=== PATIENT | female | born 1995 | race Caucasian/White ===

== ENCOUNTER → 2023-09-13 | Outpatient (CLI) | payer OTHER | LOC: M RAD 12:08 | PROVIDERS: ATTEND Surgery | DX: I83.812 Varicose veins of left lower extremity with pain (principal) ==

== ENCOUNTER 2024-10-26 10:20 | Inpatient (IN) | payer OTHER ==
[~2024-10-26] VITALS: Ht 167.6 cm; Wt 80.8 kg
[2024-10-26 11:50] LABS: BASO # 0.0 10^3/uL (0.0-0.2); BASO % 0.2 % (0.0-1.0); EOS # 0.0 10^3/uL (0.0-0.5); EOS % 0.3 % (0.0-3.0); LYMPH # 1.0 10^3/uL (1.5-5.0); LYMPH % 7.3 % (24.0-44.0); MONO # 0.4 10^3/uL (0.0-0.8); MONO % 3.0 % (2.0-8.0); NEUTROPHILS # 11.6 10^3/uL (1.5-8.5); NEUTROPHILS % 88.8 % (36.0-66.0); PLATELET COUNT, AUTOMATED 283 10^3/uL (150-450)
[2024-10-26 12:18] LABS: ALT/SGPT 9 U/L (7.0-40); AST/SGOT 20 U/L (<34); CALCIUM LEVEL 9.6 MG/DL (8.5-10.1); CARBON DIOXIDE LEVEL 29 MMOL/L (20-31); CHLORIDE LEVEL 102 MMOL/L (98-107); CREATININE FOR GFR 0.87 MG/DL (0.55-1.30); GLOMERULAR FILTRATION RATE > 90.0 (>60); POTASSIUM SERUM 4.3 MMOL/L (3.5-5.1); SODIUM LEVEL 141 MMOL/L (136-145)
[2024-10-26 12:29] LABS: HCG, SERUM QUALITATIVE NEGATIVE (NEGATIVE)
[2024-10-26] MEDS: ONDANSETRON 4MG 2ML VIAL IV ONE (14:53)
[2024-10-26 15:10] LABS: C REACTIVE PROTEIN QUANTITATIV 0.56 MG/DL (<1.0)
[2024-10-26 15:24] LABS: ERYTHROCYTE SEDIMENTATION RATE 9 mm/hr (0-20)
[2024-10-26] MEDS ORDERED: HOME MED LIST COMPLETE! XX SCH (16:25)
[2024-10-26] MEDS: KETOROLAC 30 MG/ML 1 ML VIAL IV ONE (16:37)
[2024-10-26] MEDS ORDERED: MOM 30 ML SUSPENSION UDC PO PRN (18:00)
[2024-10-26] MEDS ORDERED: MAALOX 30 ML SUSP *UDC PO PRN (18:00)
[2024-10-26] MEDS: NS (Normal Saline) 0.9% 1,000 ML IV ONE (18:29)
[2024-10-26] MEDS: metroNIDAZOLE 500 MG in IV 1 EA IV ONE (18:29)
[2024-10-26] MEDS: ACETAMINOPHEN 325 MG TAB PO PRN (19:43)
[2024-10-26] MEDS: CIPROFLOXACIN 400 MG in IV 1 EA IV ONE (20:27)
[2024-10-26] MEDS: D5W/0.9% SODIUM CHLORIDE 1,000 ML IV SCH (20:27)
[2024-10-26] MEDS: ONDANSETRON 4MG 2ML VIAL IV PRN (21:25)
[2024-10-26] MEDS: MORPHINE 2 MG/ML 1 ML VIAL IV ONE (21:25)
[2024-10-26 22:00] VITALS: BP 111/61; TEMP 97.7; O2SAT 97
[2024-10-26] MEDS: SENNOSIDES/DOCUSATE SODIUM 8.6 MG/50MG TAB PO SCH (22:49)
[2024-10-26] MEDS: PANTOPRAZOLE 40MG VIAL IV SCH (22:50)
[2024-10-26] MEDS: BISACODYL 10 MG SUPP PR SCH (22:51)
[2024-10-26] MEDS: HEPARIN SOD 5000 UNITS/ML 1 ML VIAL/SYRINGE SC SCH (22:51)
[2024-10-27] MEDS: metroNIDAZOLE 500 MG in IV 1 EA IV SCH (01:53)
[2024-10-27 04:20] VITALS: BP 98/56; TEMP 98.2; O2SAT 96
[2024-10-27 06:30] LABS: BASO # 0.0 10^3/uL (0.0-0.2); BASO % 0.2 % (0.0-1.0); EOS # 0.2 10^3/uL (0.0-0.5); EOS % 1.8 % (0.0-3.0); LYMPH # 1.2 10^3/uL (1.5-5.0); LYMPH % 11.7 % (24.0-44.0); MONO # 0.7 10^3/uL (0.0-0.8); MONO % 6.8 % (2.0-8.0); NEUTROPHILS # 8.3 10^3/uL (1.5-8.5); NEUTROPHILS % 79.0 % (36.0-66.0); PLATELET COUNT, AUTOMATED 224 10^3/uL (150-450)
[2024-10-27 07:47] LABS: CALCIUM LEVEL 8.3 MG/DL (8.5-10.1); CARBON DIOXIDE LEVEL 27.0 MMOL/L (20-31); CHLORIDE LEVEL 106.0 MMOL/L (98-107); CREATININE FOR GFR 0.91 MG/DL (0.55-1.30); GLOMERULAR FILTRATION RATE 87.0 (>60); MAGNESIUM LEVEL 1.6 MG/DL (1.8-2.4); POTASSIUM SERUM 4.0 MMOL/L (3.5-5.1); SODIUM LEVEL 143.0 MMOL/L (136-145)
[2024-10-27 08:14] VITALS: BP 121/75; TEMP 97.5; O2SAT 100
[2024-10-27] MEDS: KETOROLAC 30 MG/ML 1 ML VIAL IV PRN (08:17)
[2024-10-27] MEDS: DOCUSATE SODIUM 100 MG CAPSULE PO SCH (08:18)
[2024-10-27] MEDS: CIPROFLOXACIN 400 MG in IV 1 EA IV SCH (08:19)
[2024-10-27] MEDS: SENNA 8.6 MG TAB PO SCH (09:49)
[2024-10-27] MEDS: MAG SULF 1GM/100ML (MAG RUN) 1 GM in IV 1 EA IV SCH (09:49)
[2024-10-27 12:26] VITALS: BP 120/70; TEMP 97; O2SAT 98
[2024-10-27 19:29] VITALS: BP 119/65; TEMP 98.2; O2SAT 99
[2024-10-27 23:26] VITALS: BP 112/68; TEMP 98.8; O2SAT 99
[2024-10-28 04:18] VITALS: BP 109/58; TEMP 98.8; O2SAT 97
[2024-10-28 07:17] LABS: BASO # 0.0 10^3/uL (0.0-0.2); BASO % 0.4 % (0.0-1.0); EOS # 0.3 10^3/uL (0.0-0.5); EOS % 3.5 % (0.0-3.0); LYMPH # 1.5 10^3/uL (1.5-5.0); LYMPH % 20.7 % (24.0-44.0); MONO # 0.6 10^3/uL (0.0-0.8); MONO % 7.6 % (2.0-8.0); NEUTROPHILS # 5.0 10^3/uL (1.5-8.5); NEUTROPHILS % 67.5 % (36.0-66.0); PLATELET COUNT, AUTOMATED 213 10^3/uL (150-450)
[2024-10-28 07:37] VITALS: BP 112/67; TEMP 98.6; O2SAT 98
[2024-10-28 07:48] LABS: CALCIUM LEVEL 8.2 MG/DL (8.5-10.1); CARBON DIOXIDE LEVEL 27.0 MMOL/L (20-31); CHLORIDE LEVEL 106.0 MMOL/L (98-107); CREATININE FOR GFR 0.94 MG/DL (0.55-1.30); GLOMERULAR FILTRATION RATE 83.7 (>60); MAGNESIUM LEVEL 1.7 MG/DL (1.8-2.4); POTASSIUM SERUM 3.9 MMOL/L (3.5-5.1); SODIUM LEVEL 143.0 MMOL/L (136-145)
[2024-10-28 11:42] VITALS: BP 124/59; TEMP 98.6; O2SAT 98
[2024-10-28] MEDS: FLEET ENEMA PR ONE (15:05)
[2024-10-28 15:51] VITALS: BP 118/79; TEMP 98.4; O2SAT 98
[2024-10-28 20:00] VITALS: BP 11/69; TEMP 98.1; O2SAT 96
[2024-10-28] MEDS: MAG SULF 1GM/100ML (MAG RUN) 1 GM in IV 1 EA IV SCH (20:47)
[2024-10-28 23:42] VITALS: BP 120/64; TEMP 97.6; O2SAT 98
[2024-10-29 03:52] VITALS: BP 119/68; TEMP 97.3; O2SAT 97
[2024-10-29 04:00] VITALS: O2SAT 97
[2024-10-29 07:14] LABS: CALCIUM LEVEL 8.3 MG/DL (8.5-10.1); CARBON DIOXIDE LEVEL 26 MMOL/L (20-31); CHLORIDE LEVEL 107 MMOL/L (98-107); CREATININE FOR GFR 0.85 MG/DL (0.55-1.30); GLOMERULAR FILTRATION RATE > 90.0 (>60); MAGNESIUM LEVEL 1.8 MG/DL (1.8-2.4); POTASSIUM SERUM 4.1 MMOL/L (3.5-5.1); SODIUM LEVEL 144 MMOL/L (136-145)
[2024-10-29] MEDS ORDERED: CIPR750T2 PO (10:54)
[2024-10-29] MEDS ORDERED: METR-265 PO (10:54)
[2024-10-29] MEDS ORDERED: PROBCAP14 PO (10:54)
[2024-10-29 11:48] VITALS: BP 124/62; TEMP 98.7; O2SAT 97
== END 2024-10-29 14:00 | disposition home or self-care (01) | DRG 392 ==
LOC: M ED 10:20 → M ED INP 18:00 → M MS4PR 22:26
PROVIDERS: ADMIT Internal Medicine; ATTEND Internal Medicine
DX: K52.9 Noninfective gastroenteritis and colitis, unspecified (principal); K56.609 Unspecified intestinal obstruction, unspecified as to partial versus complete obstruction; F17.290 Nicotine dependence, other tobacco product, uncomplicated; E83.42 Hypomagnesemia; Z90.49 Acquired absence of other specified parts of digestive tract; Z88.0 Allergy status to penicillin